=== PATIENT | male | born 1940 | race Caucasian/White ===

== ENCOUNTER 2017-09-07 09:12 | Outpatient (CLI) | payer MEDICARE, OTHER ==
[2013-01-19 18:15] VITALS: BP 152/75
[2017-09-07 10:06] LABS: eGFR (African) > 60; eGFR (Non-African) > 60
== END 2017-09-07 09:13 ==
LOC: LAB 09:12
PROVIDERS: ATTEND Family Medicine
DX: J43.1 Panlobular emphysema (principal); E78.5 Hyperlipidemia, unspecified; Z12.5 Encounter for screening for malignant neoplasm of prostate
CPT/HCPCS: 36415; 80053; 80061; 84153

== ENCOUNTER 2018-01-13 20:11 | Emergency (ER) | payer MEDICARE, OTHER ==
[2018-01-13] MEDS ORDERED: IPRATROPIUM/ALBUTEROL SULFATE 3 ML AMPUL.NEB NEB STA ×2 (20:15→20:45)
[2018-01-13] MEDS ORDERED: IPRATROPIUM/ALBUTEROL SULFATE 3 ML AMPUL.NEB NEB ONE (20:19)
--- NOTE | 2018-01-13 20:59 | ED Physician Documentation ---
Dyspnea - HISTORIAN Historian: patient - HPI Chief Complaint: Dyspnea Onset: days ago (14) Duration: worse Initiating Event: upper respiratory illness Severity: severe Exacerbated By: coughing Associated Symptoms: chills, fever, chest discomfort (related to coughing), productive cough. denies: chest pain, heart racing, dizziness, light-headedness , anxiety, hands tingling, face tingling, muscle spasms Further Comments: yes (77 year old male patient brought in by family for evaluation of cough, chills, body aches, and fatigue. Patient reports symptoms began 1 week ago and have gotten worse. Has been using his advair at home. Is out of his Proair. RA Sat 81-82% on arrival.) - ROS CONST: weakness EYES/ENT: nasal congestion. denies: problems with vision, sore throat, nasal drainage GI/: denies: vomiting, nausea, diarrhea NEURO/PSYCH: denies: headache MS/SKIN/LYMPH: none - PAST HX Lung Disease: COPD Allergies/Adverse Reactions: Allergies Allergy/AdvReac Type Severity Reaction Status Date / Time No Known Allergies Allergy Verified 01/13/18 20:58 - SOCIAL HX Smoking History: cigarettes - FAMILY HX Family History: denies: none - VITAL SIGNS Vital Signs: Vital Signs Temp Pulse Resp BP Pulse Ox 152/75 01/19/13 18:45 - REVIEWED ASSESSMENTS Nursing Assessment Reviewed: Yes Vitals Reviewed: Yes Progress - Progress Progress: Patient placed on O2 at 5L NC - Sat improved to 92%, RR 20-22; duoneb started. No influenza swabs available 2144 Intermittent run Afib with RVR, frequent PACs noted. 2214 Reviewed lab and xray results with patient and daughter, daughter would like patient transferred to [facility]. 2219 Call to [facility] [address] Kirkland, cardiology from [facility]. Patient accepted for transfer. - EKG/XRAY/CT EKG: rhythm (ST, rate 105) ED Results Lab/Radiology - Radiology Radiology Impressions: Chest , 1 view History: COUGH, HYPOXIA Findings: The heart size is normal. There is mild central pulmonary vascular congestion is present with mild bibasilar infiltrate/atelectasis noted. Also there is a 2.1 x 1.3 cm nodule within the left upper lobe suprahilar region present. No pleural effusion or pneumothorax identified. Impression: 1. Mild central pulmonary vascular congestion with mild bibasilar infiltrate/ atelectasis present. 2. Left upper lobe suprahilar pulmonary nodule Electronically signed on Jan 13, 2018 9:19:09 PM [employer] SUPERVISOR by: Ash Beatty - Orders Orders: ED Orders Category Date Time Status Continuous EKG monitoring Q30M Care 01/13/18 20:49 Active Continuous Pulse Oximetry Q30M Care 01/13/18 20:49 Active CHEST 1VIEW [RAD] Stat Exams 01/13/18 20:49 Ordered BLOOD CULTURE Stat Lab 01/13/18 20:51 Received CBC/PLATELET/DIFF Stat Lab 01/13/18 20:51 Received CMP Stat Lab 01/13/18 20:51 Received TROPONIN I (cTnI) Stat Lab 01/13/18 20:51 Received UA W/MICRO IF INDICATED Stat Lab 01/13/18 20:49 Ordered Ipratropium/Albuterol Sulfate [Duoneb] Med 01/13/18 20:19 Discontinued 6 ml NEB .STK-MED ONE Oxygen Daily Oxygen 01/13/18 21:00 Ordered EKG WITH COMPARISON Stat Ther 01/13/18 20:49 Ordered Dyspnea Physical Exam - EXAM General Appearance: moderate distress EENT: eye inspection normal, pharynx normal, no signs of dehydration, GAURI, no nystagmus, TM's nml, dry mucous membranes Respiratory: no pain on inspiration, decreased air movement (bases), wheezes ( expiratoy), rales (bilateral) CVS: no murmur, no gallop, no friction rub, pulses full, pulses equal, tachycardia Abdomen: non-tender, no organomegaly, no distention, no ascites Skin: no rash, cyanosis, warm, nml palp., dry Extremities: non-tender, normal range of motion, no evidence of injury, no edema , J, [employer] Neuro/Psych: oriented x3, CN's nml as tested, motor nml, sensation nml, mood/ affect nml Discharge Clincal Impression: Hypoxemia requiring supplemental oxygen, Intermittent atrial fibrillation, Elevated LFTs CHF (congestive heart failure) Qualifiers: Congestive heart failure type: combined Congestive heart failure chronicity: acute Qualified Code(s): I50.41 - Acute combined systolic (congestive) and diastolic (congestive) heart failure Referrals: Manny Buenrostro MD [Primary Care Provider] - 2 Days Condition: Stable Disposition: 02 XFER SHT-TRM HOSP Decision to Admit: NO Decision Time: 23:06
[2018-01-13 21:15] LABS: eGFR (African) > 60; eGFR (Non-African) > 60
[2018-01-13 21:21] LABS: MEAN CORPUSCULAR HEMOGLOBIN 32.9 pg (28.0-34.0); MEAN CORPUSCULAR VOLUME 101.5 fl (80.0-100.0)
[2018-01-13] MEDS ORDERED: 0.9 % SODIUM CHLORIDE 1,000 ML IV ONE ×2 (21:37→21:47)
--- NOTE | 2018-01-13 21:39 | Diagnostic Imaging Report ---
YAJAIRA PINEDA (SAFETY ENGINEER [employer]URE [employer]ESSELS) - ER [facility] [address] [facility] [id number] Report Submission Date: Jan 13, 2018 9:19:09 PM PRODUCTION CLERK Patient Study Name: JIM MCDONALD Date: Jan 13, 2018 9:05:33 PM PRODUCTION CLERK Modality Type: CR Gender: M Description: CHEST : 42 Institution: [facility] Physician: YAJAIRA PINEDA (NORMA) - ER Chest , 1 view History: COUGH, HYPOXIA Findings: The heart size is normal. There is mild central pulmonary vascular congestion is present with mild bibasilar infiltrate/atelectasis noted. Also there is a 2.1 x 1.3 cm nodule within the left upper lobe suprahilar region present. No pleural effusion or pneumothorax identified. Impression: 1. Mild central pulmonary vascular congestion with mild bibasilar infiltrate/ atelectasis present. 2. Left upper lobe suprahilar pulmonary nodule Electronically signed on Jan 13, 2018 9:19:09 PM PRODUCTION CLERK by: Ash Beatty [facility] CENTERMeggan
[2018-01-13] MEDS ORDERED: BUDESONIDE 0.5MG/2ML AMPUL.NEB NEB ONE (22:47)
[2018-01-13 23:49] VITALS: BP 159/74
[2018-01-14 06:14] LABS: APPEARANCE,URINE CLEAR (CLEAR); COLOR,URINE YELLOW (YELLOW); OCCULT BLOOD,URINE 1+ (NEGATIVE); PH URINE 5.5 (5.0 - 8.0)
[2018-01-14 07:32] LABS: ANISOCYTOSIS 1+ (NEGATIVE); MONOCYTES % 5 % (0-11); SEGMENTED NEUTROPHILS % 69 % (39-79)
== END 2018-01-13 23:40 | disposition short-term general hospital (02) ==
LOC: ED 20:11
DX: R09.02 Hypoxemia (principal); I48.91 Unspecified atrial fibrillation; I50.41 Acute combined systolic (congestive) and diastolic (congestive) heart failure
CPT/HCPCS: 71045; 80053; 81002; 83605; 83880; 84484; 85025; 87040; 93005; J7030; J7626; 94640; 96365; 99284; S1016

== ENCOUNTER 2018-04-22 09:57 | Outpatient (CLI) | payer MEDICARE, OTHER ==
--- NOTE | 2018-04-22 17:37 | Diagnostic Imaging Report ---
TATYANA THOMAS [facility] [address] [facility] [address] [place] [address]. [id number] Report Submission Date: April 22, 2018 2:52:07 PM CDT Patient Study Name: JIM MCDONALD Date: April 22, 2018 10:01:25 AM CDT Modality Type: DX Gender: M Description: UPPER EXTREMITY : 42 Institution: [facility] Physician: TATYANA THOMAS HISTORY: 78-year-old male with left hand laceration between the second and third fingers, injury 5 days ago, evaluate for foreign body COMPARISON: None available TECHNIQUE: Three views of the left hand were performed. FINDINGS: No acute fracture or dislocation about the left hand. No radiopaque foreign bodies are identified in the soft tissues between the second and third fingers. There is a 2 mm calcification located dorsal to the second finger proximal phalangeal neck. 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 IMPRESSION: 1. No acute fracture of the left hand. 2. Osteoarthritis. 3. No radiopaque foreign bodies are identified in the area of injury. Electronically signed on April 22, 2018 2:52:07 PM CDT by: Tano WEBSTER
== END 2018-04-22 10:05 ==
LOC: LAB 09:57 → RAD 10:05
PROVIDERS: ATTEND Physician Assistant
DX: S69.92XA Unspecified injury of left wrist, hand and finger(s), initial encounter (principal); X58.XXXA Exposure to other specified factors, initial encounter; Y92.9 Unspecified place or not applicable; Y93.9 Activity, unspecified; Y99.9 Unspecified external cause status
CPT/HCPCS: 73130

== ENCOUNTER 2018-05-09 09:53 | Outpatient (CLI) | payer MEDICARE, OTHER ==
[2018-05-09 10:42] LABS: eGFR (African) > 60; eGFR (Non-African) > 60
== END 2018-05-09 09:54 ==
LOC: LAB 09:53
PROVIDERS: ATTEND Family Medicine
DX: I10 Essential (primary) hypertension (principal)
CPT/HCPCS: 36415; 80053